=== PATIENT | male | born 1955 ===

== ENCOUNTER 2022-11-25 16:57 | Emergency (ER) | payer BC ==
[2022-11-25] MEDS ORDERED: Diphtheria,Pertussis(Acell),Tetanus Vaccine 0.5 ML Syringe IM ONE (17:20)
[2022-11-25] MEDS ORDERED: Lidocaine 1% 5 ML VIAL INJECT ONE ×2 (17:20→17:29)
[2022-11-25] MEDS ORDERED: Acetaminophen/HYDROcodone 325-5 MG Tab PO ONE (18:44)
[2022-11-25] MEDS ORDERED: Cephalexin 500 MG Cap PO ONE (18:44)
[2022-11-25] MEDS ORDERED: ceFAZolin 1 GM Vial IM ONE (18:46)
[2022-11-25] MEDS ORDERED: Water For Injection, Sterile 10 ML SDV INJECT STA (19:01)
[2022-11-25 22:54] VITALS: BP 156/91; PULSE 88
== END 2022-11-25 20:00 | disposition home or self-care (01) ==
LOC: MW.ED 16:57
DX: S62.635B Displaced fracture of distal phalanx of left ring finger, initial encounter for open fracture (principal); Z91.010 Allergy to peanuts; Z23 Encounter for immunization; W26.8XXA Contact with other sharp object(s), not elsewhere classified, initial encounter
CPT/HCPCS: 12002; 73130; 90471; 90715; 96372; 99283; A9270; J0690; 12004; J3490